=== PATIENT | male | born 2000 | race Caucasian/White ===

== ENCOUNTER → 2020-07-07 10:58 | Outpatient (BNVA) | payer BC, SELFPAY | PROVIDERS: Family Provider Family Medicine; PCP Family Medicine; Visit Provider Nurse Practitioner | DX: S99.921A Unspecified injury of right foot, initial encounter (principal) | CPT/HCPCS: 73610 ==

== ENCOUNTER → 2020-09-13 17:42 | Outpatient (BNVA) | payer BC, SELFPAY | PROVIDERS: Family Provider Family Medicine; PCP Family Medicine; Visit Provider Family Medicine | DX: Z20.828 Contact with and (suspected) exposure to other viral communicable diseases (principal) | CPT/HCPCS: 87635 ==

== ENCOUNTER → 2023-04-23 10:14 | Outpatient (BNVA) | payer OTHER, SELFPAY | PROVIDERS: Family Provider Family Medicine; PCP Family Medicine; Visit Provider Nurse Practitioner | DX: S99.921A Unspecified injury of right foot, initial encounter (principal); M79.671 Pain in right foot; M79.89 Other specified soft tissue disorders; W55.32XA Struck by other hoof stock, initial encounter | CPT/HCPCS: 73630 ==

== ENCOUNTER → 2023-12-11 10:55 | Outpatient (BNVA) | payer OTHER, SELFPAY | PROVIDERS: Family Provider Family Medicine; PCP Family Medicine; Visit Provider Nurse Practitioner Family | DX: R50.9 Fever, unspecified (principal) | CPT/HCPCS: 80053; 85025; 87071; 87400; 87426; 87880 ==

== ENCOUNTER → 2023-12-17 10:10 | Outpatient (BNVA) | payer OTHER, SELFPAY | PROVIDERS: Family Provider Family Medicine; PCP Family Medicine; Visit Provider Nurse Practitioner Family | DX: R50.9 Fever, unspecified (principal); R53.83 Other fatigue | CPT/HCPCS: 71046; 80053; 84443; 85025; 86618; 86666; 86757 ==

== ENCOUNTER 2024-10-25 01:24 | Emergency (ER) | payer OTHER, SELFPAY ==
[2024-10-25 01:31] VITALS: BP 133/87; PULSE 60; RESP 16; TEMP 36.7; O2SAT 98; BMI 22.4
[2024-10-25 03:18] VITALS: BP 127/85; PULSE 65; RESP 18; O2SAT 99
[2024-10-25 03:26] LABS: Basophils # 0.1 10^3/uL (0.0-0.1); Basophils % 0.8 %; Eosinophils % 0.6 %; Hematocrit 44.2 % (37-53); Lymphocytes # 1.5 10^3/uL (0.8-4.8); Lymphocytes % 22.9 %; Mean Corpuscular HGB Conc 34.8 g/dL (30-55); Mean Corpuscular Hemoglobin 29.6 pg (27-33); Mean Platelet Volume 9.8 fL (7.4-10.4); Monocytes # 0.3 10^3/uL (0.2-0.9); Monocytes % 4.2 %; Neutrophils # 4.72 10^3/uL (1.8-7.7); Neutrophils % 71.2 %; Nucleated Red Blood Cells % 0 %; Platelet Count 245 10^3/cmm (157-399); White Blood Count 6.63 10^3/uL (3.29-11.43)
--- NOTE | 2024-10-25 03:47 | W.ED.ABDPA2 ---
HPI - Abdominal Pain General: Chief Complaint: Abdominal Pain Stated Complaint: ABD Pain Time Seen by Provider: 10/25/24 03:42 History of Present Illness: 24-year-old healthy male. He presents with epigastric pain. He has had this since Friday night he says, 3 days ago. Last night, though, it became quite intense. He threw up several times last night. It seemed improved with a heating pad transiently, but increased in intensity earlier this morning. He has not had pain like this before. In the beginning, he thought he had eaten something that he is allergic to, as he has alpha gal deficiency, but he has not had the symptoms prior with those types of reactions. No fever. No blood in the vomitus. No diarrhea. He states he is a bit constipated. No history of abdominal surgery. Related Data Previous Rx's ?Medication ?Instructions ?Recorded doxycycline hyclate 100 mg capsule 100 mg PO BID #20 caps 12/17/23 lansoprazole 30 mg capsule,delayed 30 mg PO DAILY #30 caps 10/25/24 release (Prevacid) sucralfate 1 gram tablet 1 g PO TID 4 weeks #84 tabs 10/25/24 Allergies Allergy/AdvReac Type Severity Reaction Status Date / Time No Known Allergies Allergy Verified 12/17/23 09:29 [facility] ED PFSH: Social History Smoking and tobacco/nicotine status: never used tobacco/nicotine Second hand smoke exposure: No Alcohol intake: never Substance/Drug Use: never Household members: spouse Housing: House Marital status: Physical Exam Const: COMMON NORMALS: no acute distress GENERAL APPEARANCE: cooperative; not ill appearing and not frail appearing HENMT: COMMON NORMALS: normocephalic, atraumatic and Normal external nose present HEAD & SCALP: normocephalic and atraumatic FACE & SINUS: normal facial exam and face symmetric NOSE: Normal external nose present Eye: COMMON NORMALS: Equal, round and reactive pupils present and EOMs intact bilaterally PUPIL: Yes Equal, round and reactive pupils present Neck/C-Spine: GENERAL: Yes trachea midline Chest: CHEST: Yes Symmetrical chest wall rise Resp: COMMON NORMALS: normal respiratory effort, No retractions, No use of accessory muscles and clear to auscultation bilaterally AUSCULTATION: clear to auscultation bilaterally Cardio: COMMON NORMALS: regular rate and regular rhythm RATE: regular rate RHYTHM: regular rhythm GI: COMMON NORMALS: Normal to inspection, nondistended, normoactive bowel sounds present PALPATION: Yes Tenderness to palpation present (GI) (Epigastric) Extremity: COMMON NORMALS: no pedal edema Neuro: ALEX COMA SCALE: document GCS findings Alex coma scale eye opening: Spontaneous Aurora coma scale verbal response: Orientated Alex coma scale motor response: Obey commands Aurora coma scale total score: 15 SENSORY EXAM: Yes extremities (intact) Psych: COMMON NORMALS: speech normal SPEECH: Yes normal speech Skin: COMMON NORMALS: no rashes or lesions noted GENERAL SKIN EXAM: no rashes or lesions noted Course Vital Signs: Vital signs: Vital Signs Temperature 98.1 F 10/25/24 01:31 Pulse Rate 78 10/25/24 05:36 Respiratory Rate 16 10/25/24 05:30 Blood Pressure 137/78 10/25/24 05:36 Pulse Oximetry 98 10/25/24 05:36 Oxygen Delivery Me thod Room Air 10/25/24 01:31 MDM - Abdominal Pain Medical Decision Making Abdominal exam is benign. He has some mild epigastric tenderness. His CBC is normal. His BMP is not remarkable. His CRP is 3. His liver enzymes are normal. His lipase is 18. His KUB is nonacute. GI cocktail did not seem to help his pain much. He is given morphine and Toradol with some relief. He will be discharged for outpatient follow-up. Lab Data 10/25/24 03:15 10/25/24 03:15 Labs/Radiology: Radiology Impressions KUB X-Ray 10/25/24 04:12 IMPRESSION: Moderate colonic stool burden. Laboratory Results WBC 6.63 10^3/uL (3.29-11.43) 10/25/24 03:15 RBC 5.20 10^6/uL (3.85-5.65) 10/25/24 03:15 Hgb 15.40 g/dL (11.27-16.99) 10/25/24 03:15 Hct 44.2 % (37-53) 10/25/24 03:15 MCV 85.0 fl (82-101) 10/25/24 03:15 MCH 29.6 pg (27-33) 10/25/24 03:15 MCHC 34.8 g/dL (30-55) 10/25/24 03:15 RDW 13.0 % (12.1-15.1) 10/25/24 03:15 Plt Count 245 10^3/cmm (157-399) 10/25/24 03:15 MPV 9.8 fL (7.4-10.4) 10/25/24 03:15 Neut % (Auto) 71.2 % 10/25/24 03:15 Lymph % (Auto) 22.9 % 10/25/24 03:15 Woods % (Auto) 4.2 % 10/25/24 03:15 Eos % (Auto) 0.6 % 10/25/24 03:15 Baso % (Auto) 0.8 % 10/25/24 03:15 Neut # (Auto) 4.72 10^3/uL (1.8-7.7) 10/25/24 03:15 Lymph # (Auto) 1.5 10^3/uL (0.8-4.8) 10/25/24 03:15 Woods # (Auto) 0.3 10^3/uL (0.2-0.9) 10/25/24 03:15 Eos # (Auto) 0.0 10^3/uL (0.0-0.8) 10/25/24 03:15 Baso # (Auto) 0.1 10^3/uL (0.0-0.1) 10/25/24 03:15 Nucleated RBC % (auto) 0 % 10/25/24 03:15 Nucleated RBCs # 0.0 /100WBC 10/25/24 03:15 Sodium 139 mmol/L (136-145) 10/25/24 03:15 Potassium 4.0 mmol/L (3.5-5.1) 10/25/24 03:15 Chloride 102 mmol/L (98-107) 10/25/24 03:15 Carbon Dioxide 25 mmol/L (22-29) 10/25/24 03:15 Anion Gap 16.0 (5-19) 10/25/24 03:15 BUN 9 mg/dL (6-20) 10/25/24 03:15 Creatinine 0.7 mg/dL (0.7-1.2) 10/25/24 03:15 GFR Calculation 138.6 mL/min (90-130) H 10/25/24 03:15 Glucose 124 mg/dL (65-115) H 10/25/24 03:15 Calculated Osmolality 288 mOsm/kg (285-295) 10/25/24 03:15 Calcium 9.3 mg/dL (8.5-10.5) 10/25/24 03:15 Total Bilirubin 0.7 mg/dL (0.15-1.2) 10/25/24 03:15 AST 16 U/L (0-40) 10/25/24 03:15 ALT 11 U/L (0-41) 10/25/24 03:15 Alkaline Phosphatase 60 U/L (40-130) 10/25/24 03:15 C-Reactive Protein 3.0 mg/L (0.0-4.9) 10/25/24 03:15 Total Protein 7.4 g/dL (6.6-8.7) 10/25/24 03:15 Albumin 4.7 g/dL (3.5-5.2) 10/25/24 03:15 Globulin 2.7 g/dL (1.3-4.6) 10/25/24 03:15 Lipase 18 U/L (13-60) 10/25/24 03:15 Urine Color Yellow (Yellow) 10/25/24 04:50 Urine Appearance Clear (CLEAR) 10/25/24 04:50 Urine pH 6.0 (5-7) 10/25/24 04:50 Ur Specific [place] 1.030 (1.005-1.030) 10/25/24 04:50 Urine Protein Trace (Negative) A 10/25/24 04:50 Urine Glucose (UA) Negative (Normal) 10/25/24 04:50 Urine Ketones 2+ (Negative) H 10/25/24 04:50 Urine Blood Negative (Negative) 10/25/24 04:50 Urine Nitrate Negative (Negative) 10/25/24 04:50 Urine Bilirubin Negative (Negative) 10/25/24 04:50 Urine Urobilinogen 1.0 mg/dL (Negative) 10/25/24 04:50 Ur Leukocyte Esterase Negative (Negative) 10/25/24 04:50 Urine RBC 0-2 /hpf (0-2) 10/25/24 04:50 Urine WBC 0-5 /hpf (0-5) 10/25/24 04:50 Ur Squamous Epith Cells 0-5 /hpf (0-5) 10/25/24 04:50 Amorphous Sediment Not Reportable 10/25/24 04:50 Urine Bacteria None seen /hpf (NONE) 10/25/24 04:50 Hyaline Casts 0.81 /lpf 10/25/24 04:50 No radiology studies performed this visit Discharge Plan Discharge Patient Disposition: Home Clinical Impression: Gastritis Condition: Stable Prescriptions: New sucralfate 1 gram tablet 1 g PO TID 28 Days Qty: 84 0RF lansoprazole [Prevacid] 30 mg capsule,delayed release(DR/EC) 30 mg PO DAILY Qty: 30 0RF No Action doxycycline hyclate 100 mg capsule 100 mg PO BID Qty: 20 0RF Discharge Orders: Discharge ED (Routine); Ordered 10/25/24 Ordered By: Kodi Velasquez Referrals: Александр España, [Primary Care Provider] - 1-3 days Patient Instructions: Gastritis (ED), Opioid Safety, Pain Management Activity Restrictions/Additional Instructions: Medications as directed. Call your doctor later this morning for a follow-up appointment. Return for vomiting liquids or medications, fever greater than 100, blood in the stool or vomit, other concerning symptoms. Further outpatient testing may be necessary should pain continue. Print Language: Polish Coding Level of Care Code ED [employer] for [employer]
[2024-10-25] MEDS: lidocaine 2% viscous 15 ML, aluminum-mag hydrox-simethicon 30 ML, sucralfate oral liq 1 GM PO (03:49)
[2024-10-25 03:51] LABS: Alanine Aminotransferase 11 U/L (0-41); Albumin Level 4.7 g/dL (3.5-5.2); Alkaline Phosphatase 60 U/L (40-130); Aspartate Amino Transferase 16 U/L (0-40); Blood Urea Nitrogen 9 mg/dL (6-20); Calcium 9.3 mg/dL (8.5-10.5); Carbon Dioxide 25 mmol/L (22-29); Chloride 102 mmol/L (98-107); Creatinine Clr Calc Pharmacy 181.3292; Globulin 2.7 g/dL (1.3-4.6); Glomerular Filtration Rate 138.6 mL/min (90-130); Glucose 124 mg/dL (65-115); Lipase 18 U/L (13-60); Osmolality Calculated 288 mOsm/kg (285-295); Sodium 139 mmol/L (136-145); Total Bilirubin 0.7 mg/dL (0.15-1.2); Total Protein 7.4 g/dL (6.6-8.7)
--- NOTE | 2024-10-25 04:12 | XRR_ITS ---
PROCEDURE INFORMATION: Exam: XR Abdomen Exam date and time: 10/25/2024 4:23 AM Age: 24 years old Clinical indication: Abdominal pain; C/O epigastric pain TECHNIQUE: Imaging protocol: Radiologic exam of the abdomen. Views: Frontal supine view of the abdomen. 1 View. COMPARISON: CR XR chest 2V* [id number] 12/17/2023 10:08 AM FINDINGS: Gastrointestinal tract: Moderate colonic stool burden. Bones/joints: Unremarkable. XR/XR KUB portable [id number] IMPRESSION: Moderate colonic stool burden.
[2024-10-25] MEDS: ketorolac 30 mg/mL INJ IVP (04:51)
[2024-10-25] MEDS: morphine 4 mg/mL SDV 1 mL IVP (04:52)
[2024-10-25] MEDS: ondansetron 2 mg/ML SDV 2 mL 4 MG IVP (04:52)
[2024-10-25 05:23] LABS: Bilirubin Urine Negative (Negative); Blood Urine Negative (Negative); Glucose Urine UA Negative (Normal); Ketones Urine 2+ (Negative); Leukocyte Esterase Urine Negative (Negative); Nitrate Urine Negative (Negative); Protein Urine Trace (Negative); Urine Appearance Clear (CLEAR); Urine Color Yellow (Yellow)
[2024-10-25 05:28] LABS: Add Urine Microscopic? YES; Bacteria Urine None Seen /hpf; Hyaline Casts Urine 0.81 /lpf; RBC Urine 0-2 /hpf (0-2); Squamous Epithelial Cell Urine 0-5 /hpf (0-5); WBC Urine 0-5 /hpf (0-5)
[2024-10-25 05:30] VITALS: BP 138/76; PULSE 72; RESP 16; O2SAT 98
[2024-10-25 05:36] VITALS: BP 137/78; PULSE 78; O2SAT 98
== END 2024-10-25 05:37 | disposition home or self-care (01) ==
PROVIDERS: Emergency Provider Emergency Medicine; PCP Family Medicine
DX: K29.70 Gastritis, unspecified, without bleeding (principal)
CPT/HCPCS: 36415; 74018; 80053; 81001; 83690; 85025; 86140; 96374; 96375; 99284; J1885; J2270; J2405